=== PATIENT | female | born 1975 ===

== ENCOUNTER 2017-03-23 09:31 | Emergency (ER) | payer SELFPAY ==
[2017-03-23 09:39] VITALS: BP 124/86; TEMP 98; O2SAT 100
[2017-03-23 10:35] LABS: RBC URINE 2 /hpf (0-3); URINE BACTERIA RARE (<OCC); URINE BILIRUBIN NEGATIVE (NEGATIVE); URINE BLOOD NEGATIVE (NEGATIVE); URINE COLOR Yellow (YELLOW); URINE GLUCOSE (UA) NORMAL (Normal); URINE KETONE NEGATIVE (NEGATIVE); URINE LEUKOCYTE ESTERASE NEG Leu/uL (Negative); URINE PROTEIN NEGATIVE (NEGATIVE); URINE UROBILINOGEN NORMAL mg/dL (0.2-1.0); WBC URINE 1 /hpf (0-5)
--- NOTE | 2017-03-23 11:21 | C.PDOC ---
History Of Present Illness Amy Mitchell is a 42 year old female, with no past medical history, who presents to the emergency department complaining of bilateral swelling and pain on hands and feet onset for 10 days. Patient also reports tender to touch bilateral breast pain associated with swelling, and urinary frequency associated with dysuria, non-radiating back pain and suprapubic abdominal pain. Patient denies fever, vomit, diarrhea, chest pain or shortness of breath. PMD: None provided. Time Seen by Provider: 03/23/17 09:40 Chief Complaint (Nursing): Medical Clearance History Per: Patient History/Exam Limitations: no limitations Onset/Duration Of Symptoms: Days (x10) Current Symptoms Are (Timing): Still Present Past Medical History Reviewed: Historical Data, Nursing Documentation, Vital Signs Vital Signs: Last Vital Signs Temp 98 F 03/23/17 09:38 Pulse 72 03/23/17 11:36 Resp 18 03/23/17 11:36 BP 124/86 03/23/17 09:38 Pulse Ox 100 03/23/17 11:49 Family History: States: No Known Family Hx - Social History Hx Tobacco Use: No Hx Alcohol Use: No Hx Substance Use: No - Immunization History Hx Tetanus Toxoid Vaccination: No Hx Influenza Vaccination: No Hx Pneumococcal Vaccination: No Review Of Systems Except As Marked, All Systems Reviewed And Found Negative. Constitutional: Negative for: Fever Cardiovascular: Negative for: Chest Pain Respiratory: Negative for: Shortness of Breath Gastrointestinal: Positive for: Abdominal Pain (suprapubic ). Negative for: Vomiting, Diarrhea Genitourinary: Positive for: Dysuria, Frequency Musculoskeletal: Positive for: Back Pain (non radiating), Hand Pain (bilateral hand swelling), Leg Pain (bilateral leg swelling), Other (bilateral breast pain associated with swelling ) Physical Exam - Physical Exam Appears: Non-toxic, No Acute Distress Skin: Normal Color, Warm, Dry, No Rash Head: Atraumatic, Normacephalic Eye(s): bilateral: Normal Inspection, PERRL, EOMI Ear(s): Bilateral: Normal Nose: Normal Oral Mucosa: Moist Throat: Normal, No Erythema, No Exudate Neck: Normal, Normal ROM, Supple Chest: Tenderness (mild tenderness to bilateral breasts. No swelling, no mass, no nipple drainage, no inverted nipples.), Other ([employer]: Comfort Smith) Cardiovascular: Rhythm Regular, No Friction Rub, No Murmur Respiratory: Normal Breath Sounds, No Rales, No Rhonchi, No Wheezing Gastrointestinal/Abdominal: Normal Exam, Soft, No Tenderness Back: Normal Inspection, No CVA Tenderness Extremity: Normal ROM, No Pedal Edema, No Deformity, No Swelling Neurological/Psych: Normal Speech, Normal Cognition, Normal Motor, Normal Sensation Gait: Steady ED Course And Treatment O2 Sat by Pulse Oximetry: 100 (RA) Pulse Ox Interpretation: Normal Medical Decision Making Medical Decision Making: Initial Plan: --Flexeril 10 mg PO --Toradol 30 mg IM --Macrobid 100 mg PO --Pyridium 200 mg PO --reevaluation The breast exam is normal. On re-exam, the patient reports improvement of symptoms. Lungs are CTA, heart is RRR, abdomen is soft, non-tender Abdomen is soft, non-tender and patient is tolerating PO well. Ambulatory in the ED with steady gait. Follow up with the medical doctor within 1-2 days. Return if worsened. Scribe Attestation Written by Thaddeus Chin acting as a scribe for Opal HASTINGS All medical record entries made by the Scribe were at my direction and personally dictated by me. I have reviewed the chart and agree that the record accurately reflects my personal performance of the history, physical exam, medical decision making, and the department course for this patient. I have also personally directed, reviewed, and agree with the discharge instructions and disposition. Disposition - Disposition Referrals: [facility] [Outside] Disposition: HOME/ ROUTINE Disposition Time: 11:21 Condition: GOOD Additional Instructions: Follow up with the doctor within 1-2 days without fail. REturn if worsened Prescriptions: metroNIDAZOLE [Flagyl] 500 mg PO BID #14 tab Naproxen [Naprosyn] 500 mg PO BID #20 tab Nitrofurantoin Macrocrystals [Macrobid] 1 cap PO BID #14 cap Phenazopyridine HCl [Pyridium] 200 mg PO TID #10 tablet Instructions: Urinary Tract Infection in Women (ED), Arthritis (ED) Forms: [employer] (Ugandan) Print Language: MACEDONIAN - Clinical Impression Clinical Impression: Breast pain, Joint pain, UTI (urinary tract infection), Back pain
[2017-03-23 11:37] VITALS: PULSE 72; RESP 18
== END 2017-03-23 11:37 | disposition home or self-care (01) ==
LOC: SUPCPDRO 09:31 → C.ER 09:31
DX: M25.542 Pain in joints of left hand (principal); M25.541 Pain in joints of right hand; N64.4 Mastodynia; N39.0 Urinary tract infection, site not specified; M54.9 Dorsalgia, unspecified
CPT/HCPCS: 81001; 84703; 96372; 99282; J1885